=== PATIENT | male | born 1960 | race Caucasian/White ===

== ENCOUNTER 2016-07-19 16:21 | Outpatient (CLI) | payer OTHER ==
--- NOTE | 2016-07-19 16:42 | DIAGNOSTIC IMAGING REPORT ---
PROCEDURE: XR KNEE 3 VIEWS - RIGHT INDICATION: MEDIAL EPICONDYLITIS TECHNIQUE: Three views. COMPARISON: None. FINDINGS: There is patellofemoral osteoarthritis with narrowing of the joint space laterally. IMPRESSION: 1. Patellofemoral osteoarthritis.
== END 2016-07-19 23:00 ==
LOC: XR SRH 16:21
DX: M17.11 Unilateral primary osteoarthritis, right knee (principal)